=== PATIENT | male | born 1940 | race Caucasian/White ===

== ENCOUNTER 2018-03-10 20:23 | Inpatient (IN) | payer OTHER ==
[2018-03-10 21:09] LABS: Absolute Lymphocytes (CBC) 0.5 K/uL (0.7-4.9); Absolute Monocytes 0.8 K/uL (0.1-1.3); Absolute Neutrophil 11.7 K/uL (1.8-8.0); Basophils % 0.1 % (0-1.3); Eosinophils % 0.1 % (0-4.4); Hematocrit 36.5 % (39.6-49.0); Lymphocytes % 3.8 % (15.3-44.8); MCH 28.4 pg (27.0-35.0); MCV 85.6 fL (80-100); MPV 9.6 fL (7.6-11.3); Monocytes % 6.5 % (3.3-12.3); RBC Red Blood Cell Count 4.26 M/uL (4.33-5.43)
[2018-03-10 21:36] LABS: Potassium 4.4 mEq/L (3.6-5.0)
[2018-03-10 21:42] LABS: Albumin 3.7 g/dL (3.2-5.5); Bilirubin Direct 0.1 mg/dL (0-0.2); Bilirubin Total 0.6 mg/dL (0.3-1.2); Magnesium 1.8 mg/dL (1.8-2.5); Protein, Total 7.8 g/dL (6.0-8.3)
[2018-03-10 21:43] LABS: Protime INR 1.02
--- NOTE | 2018-03-10 22:17 | EDPHYS ---
Physician Documentation [facility] Name: Guru Brooks Age: 77 yrs Sex: Male : 1940 Arrival Date: 03/10/2018 Time: 20:26 Bed 30 Private MD: ED Physician Waldemar Fuentes HPI: 03/10 22:12 This 77 yrs old Male presents to ER via EMS with complaints of Hip Injury. [facility] 22:12 The patient or guardian reports decreased range of motion, deformity. that occurred at [facility] a residential or assisted living facility, sustained from a fall. The complaints affect the left hip, left gluteal fold, left inner thigh and left upper thigh. Onset: The symptoms/episode began/occurred. Modifying factors: The symptoms are alleviated by remaining still, the symptoms are aggravated by any movement, weight bearing. Associated signs and symptoms: Loss of consciousness: the patient experienced no loss of consciousness. Severity of symptoms: At their worst the symptoms were moderate, in the emergency department the symptoms are unchanged. The patient has not experienced similar symptoms in the past. Historical: - Allergies: 20:44 Milk Containing Products; aj - Home Meds: 20:44 aspirin 81 mg Oral TbEC 1 tab once daily [Active]; atorvastatin 10 mg oral tab 1 tab aj once daily [Active]; Breo Ellipta 100-25 mcg/dose inhalation dsdv 1 puff once daily [Active]; docusate sodium 100 mg Oral cap 1 cap once daily [Active]; ferrous sulfate 325 mg (65 mg iron) Oral TbEC [Active]; Levemir 100 unit/mL subcutaneous soln 10 unit nightly [Active]; levothyroxine 88 mcg tab 1 tab once daily [Active]; multivitamin with minerals oral tab [Active]; Remeron 15 mg Oral tab 1 tab once daily [Active]; Vitamin D3 5,000 unit oral tab [Active]; Zoloft 25 mg Oral tab 1 tab once daily [Active]; magnesium oxide 400 mg Oral tab [Active]; Namenda 10 mg oral tab 1 tab 2 times per day [Active]; ProAir HFA 90 mcg/actuation inhalation HFAA 2 puffs every 6 hours [Active]; - PMHx: 20:44 Alcoholism; Anemia; Dementia; Hyperlipidemia; Depression; Diabetes - IDDM; COPD; aj Hypertension; Back pain; - PSHx: 20:44 Unable to obtain; aj - Immunization history: Last tetanus immunization: - up to date. - Social history:: Smoking status: Patient/guardian denies using tobacco. ROS: 22:12 Constitutional: Negative for fever, chills, and weight loss, Eyes: Negative for injury, isaak pain, redness, and discharge, ENT: Negative for injury, pain, and discharge, Neck: Negative for injury, pain, and swelling, Cardiovascular: Negative for chest pain, palpitations, and edema, Respiratory: Negative for shortness of breath, cough, wheezing, and pleuritic chest pain, Abdomen/GI: Negative for abdominal pain, nausea, vomiting, diarrhea, and constipation, Back: Negative for injury and pain, : Negative for injury, bleeding, discharge, and swelling, Skin: Negative for injury, rash, and discoloration, Neuro: Negative for headache, weakness, numbness, tingling, and seizure, Psych: Negative for depression, anxiety, suicide ideation, homicidal ideation, and hallucinations, Allergy/Immunology: Negative for hives, rash, and allergies, Endocrine: Negative for neck swelling, polydipsia, polyuria, polyphagia, and marked weight changes, Hematologic/Lymphatic: Negative for swollen nodes, abnormal bleeding, and unusual bruising. 22:12 MS/extremity: Positive for decreased range of motion, pain, tenderness, of the left hip, left gluteal fold, left inner thigh and left upper thigh. Exam: 22:12 Constitutional: This is a well developed, well nourished patient who is awake, alert, isaak and in no acute distress. Head/Face: Normocephalic, atraumatic. Eyes: Pupils equal round and reactive to light, extra-ocular motions intact. Lids and lashes normal. Conjunctiva and sclera are non-icteric and not injected. Cornea within normal limits. Periorbital areas with no swelling, redness, or edema. ENT: Nares patent. No nasal discharge, no septal abnormalities noted. Tympanic membranes are normal and external auditory canals are clear. Oropharynx with no redness, swelling, or masses, exudates, or evidence of obstruction, uvula midline. Mucous membranes moist. Neck: Trachea midline, no thyromegaly or masses palpated, and no cervical lymphadenopathy. Supple, full range of motion without nuchal rigidity, or vertebral point tenderness. No Meningismus. Chest/axilla: Normal chest wall appearance and motion. Nontender with no deformity. No lesions are appreciated. Cardiovascular: Regular rate and rhythm with a normal S1 and S2. No gallops, murmurs, or rubs. Normal PMI, no JVD. No pulse deficits. Respiratory: Lungs have equal breath sounds bilaterally, clear to auscultation and percussion. No rales, rhonchi or wheezes noted. No increased work of breathing, no retractions or nasal flaring. Abdomen/GI: Soft, non-tender, with normal bowel sounds. No distension or tympany. No guarding or rebound. No evidence of tenderness throughout. Back: No spinal tenderness. No costovertebral tenderness. Full range of motion. Male : Normal genitalia with no discharge or lesions. Skin: Warm, dry with normal turgor. Normal color with no rashes, no lesions, and no evidence of cellulitis. Neuro: Awake and alert, GCS 15, oriented to person, place, time, and situation. Cranial nerves II-XII grossly intact. Motor strength 5/5 in all extremities. Sensory grossly intact. Cerebellar exam normal. Normal gait. Psych: Awake, alert, with orientation to person, place and time. Behavior, mood, and affect are within normal limits. 22:12 Musculoskeletal/extremity: Extremities: ROM: limited active range of motion, limited passive range of motion, Circulation is intact in all extremities. Sensation intact. Compartment Syndrome exam of affected extremity: is normal. Weight bearing: is unable to bear weight, DVT Exam: No signs of deep vein thrombosis. no swelling, negative Homans' sign noted on exam, no appreciated bluish discoloration, no erythema, no increased warmth, pain, tenderness. Vital Signs: 20:44 BP 154 / 75; Pulse 118; Resp 21; Temp 98.7; Pulse Ox 91% on R/A; Weight 65.32 kg; aj Height 5 ft. 5 in. (165.10 cm); Pain 8/10; 22:46 BP 142 / 82; Pulse 110; Resp 16; Pulse Ox 100% ; kr2 23:28 BP 110 / 60; Pulse 106; Resp 16; Pulse Ox 100% on R/A; kr2 23:40 BP 112 / 68; Pulse 108; Resp 16; Pulse Ox 99% on R/A; kr2 20:44 Body Mass Index 23.96 (65.32 kg, 165.10 cm) Tabitha Coma Score: 20:44 Eye Response: spontaneous(4). Verbal Response: oriented(5). Motor Response: obeys aj commands(6). Total: 15. Trauma Score (Adult): 20:44 Eye Response: spontaneous(1); Verbal Response: oriented(1); Motor Response: obeys aj commands(2); Systolic BP: > 89 mm Hg(4); Respiratory Rate: 10 to 29 per min(4); Tabitha Score: 15; Trauma Score: 12 MDM: 21:11 Patient medically screened. [facility] 22:16 Data reviewed: vital signs, nurses notes, lab test result(s), EKG, radiologic studies, [facility] plain films. 03/10 20:48 Order name: Basic Metabolic Panel; Complete Time: 22:11 03/10 20:48 Order name: BNP 03/10 20:48 Order name: CBC with Diff 03/10 20:48 Order name: Ckmb; Complete Time: 22:11 03/10 20:48 Order name: CPK; Complete Time: 22:11 03/10 20:48 Order name: LFT's; Complete Time: 22:11 03/10 20:48 Order name: Magnesium; Complete Time: 22:11 03/10 20:48 Order name: PT-INR; Complete Time: 22:11 03/10 20:48 Order name: Ptt, Activated; Complete Time: 22:11 03/10 20:48 Order name: Troponin (emerg Dept Use Only); Complete Time: 22:11 03/10 20:48 Order name: Type And Screen; Complete Time: 22:11 03/10 21:22 Order name: CBC Smear Scan [facility] 03/10 22:33 Order name: ABO/RH no charge [facility] 03/10 22:39 Order name: Urine Dipstick--Ancillary (enter results) [facility] 03/10 20:48 Order name: XRAY Chest (1 view) 03/10 20:48 Order name: EKG; Complete Time: 20:49 03/10 20:48 Order name: Cardiac monitoring; Complete Time: 20:55 03/10 20:48 Order name: EKG - Nurse/Tech; Complete Time: 20:55 03/10 20:48 Order name: IV Saline Lock; Complete Time: 20:55 03/10 20:48 Order name: Labs collected and sent; Complete Time: 20:55 03/10 20:48 Order name: O2 Per Protocol; Complete Time: 20:55 03/10 20:48 Order name: O2 Sat Monitoring; Complete Time: 20:56 03/10 20:48 Order name: XRAY Hip LEFT 2 view 03/10 20:48 Order name: Femur Left XRAY 03/10 20:48 Order name: Pelvis XRAY 03/10 22:23 Order name: CONS Physician Consult [facility] 03/10 23:00 Order name: Urine Dipstick-Ancillary [facility] 03/10 20:48 Order name: Urine Dipstick-Ancillary (obtain specimen); Complete Time: 22:38 03/10 21:11 Order name: Escobar; Complete Time: 22:37 isaak Administered Medications: 22:45 Drug: Thiamine 100 mg Route: IV; Rate: bolus; Site: right forearm; kr2 23:30 Follow up: Response: No adverse reaction; IV Status: Completed infusion kr2 23:01 Drug: morphine 4 mg Route: IVP; Site: right forearm; kr2 23:15 Follow up: Response: No adverse reaction; Pain is decreased kr2 23:01 Drug: Zofran 2 mg Route: IVP; Site: right forearm; kr2 23:15 Follow up: Response: No adverse reaction; Nausea is decreased kr2 Disposition: 03/10/18 22:16 Hospitalization ordered by Joseph Garay for Inpatient Admission. Preliminary diagnosis are Fall due to bumping against object, Displaced fracture of base of neck of left femur, Type 1 diabetes mellitus, Dementia in other diseases classified elsewhere. - Bed requested for Telemetry/MedSurg (Inpatient). - Status is Inpatient Admission. kr2 - Condition is Stable. - Problem is new. - Symptoms have improved. UTI on Admission? No Signatures: Dispatcher [employer] EDMT Briseyda Sanon RN RN mw Myers, Amanda, RN RN aj Anderson, Corey, MD MD cha Reaves, Karey, RN RN kr2
--- NOTE | 2018-03-10 22:17 | ER ---
Nurse's Notes [facility] Name: Guru Brooks Age: 77 yrs Sex: Male : 1940 Arrival Date: 03/10/2018 Time: 20:26 Bed 30 Private MD: Diagnosis: Fall due to bumping against object;Displaced fracture of base of neck of left femur;Type 1 diabetes mellitus;Dementia in other diseases classified elsewhere Presentation: 03/10 20:33 Presenting complaint: EMS states: [facility] reports patient fell this AM, at unknown aj time. X-ray showed left femoral neck FX. Care prior to arrival: None. Mechanism of Injury: Fall Trauma event details: Injury occurred in the [facility], Injury occurred: at home. Injury occurred: March 10, 2018. 20:33 Method Of Arrival: EMS: [facility] aj 20:33 Acuity: SHERINE 2 aj 20:46 Transition of care: patient was not received from another setting of care. Onset of aj symptoms was March 10, 2018. Trauma Activation: Not Applicable Physician: ED Physician; Name: ; Notified At: ; Arrived At: Physician: General Surgeon; Name: ; Notified At: ; Arrived At: Physician: Radiology; Name: ; Notified At: ; Arrived At: Physician: Respiratory; Name: ; Notified At: ; Arrived At: Physician: Lab; Name: ; Notified At: ; Arrived At: Historical: - Allergies: 20:44 Milk Containing Products; aj - Home Meds: 20:44 aspirin 81 mg Oral TbEC 1 tab once daily [Active]; atorvastatin 10 mg oral tab 1 tab aj once daily [Active]; Breo Ellipta 100-25 mcg/dose inhalation dsdv 1 puff once daily [Active]; docusate sodium 100 mg Oral cap 1 cap once daily [Active]; ferrous sulfate 325 mg (65 mg iron) Oral TbEC [Active]; Levemir 100 unit/mL subcutaneous soln 10 unit nightly [Active]; levothyroxine 88 mcg tab 1 tab once daily [Active]; multivitamin with minerals oral tab [Active]; Remeron 15 mg Oral tab 1 tab once daily [Active]; Vitamin D3 5,000 unit oral tab [Active]; Zoloft 25 mg Oral tab 1 tab once daily [Active]; magnesium oxide 400 mg Oral tab [Active]; Namenda 10 mg oral tab 1 tab 2 times per day [Active]; ProAir HFA 90 mcg/actuation inhalation HFAA 2 puffs every 6 hours [Active]; - PMHx: 20:44 Alcoholism; Anemia; Dementia; Hyperlipidemia; Depression; Diabetes - IDDM; COPD; aj Hypertension; Back pain; - PSHx: 20:44 Unable to obtain; aj - Immunization history: Last tetanus immunization: - up to date. - Social history:: Smoking status: Patient/guardian denies using tobacco. Screenin:44 Abuse screen: Denies threats or abuse. Denies injuries from another. Tuberculosis aj screening: No symptoms or risk factors identified. 21:00 Fall Risk Fall in past 12 months (25 points). Secondary diagnosis (15 points) dementia, kr2 IV access (20 points). Ambulatory Aid- None/Bed Rest/Nurse Assist (0 pts). 21:00 Nutritional screening: Difficulty chewing/swallowing? Yes. kr2 Primary Survey: 20:44 A: Airway: patent. Breathing/Chest: Respiratory pattern: regular, Respiratory effort: aj spontaneous, unlabored, Breath sounds: clear, bilaterally. Chest inspection: symmetrical rise and fall of the chest. Circulation: Cardiac rhythm: sinus tachycardia Skin color: pink. Disability Alert. 21:00 Reassessment Airway Airway Patent Breathing/Chest Respiratory pattern Regular kr2 Respiratory effort Spontaneous Unlabored Circulation Heart rhythm Sinus tach Color [place] Temperature Warm Dry Disability Alert. Assessment: 20:33 General: Appears in no apparent distress. comfortable, Behavior is calm, cooperative. aj Pain: Complains of pain in left hip. Neuro: Level of Consciousness is awake, alert, obeys commands, Oriented to person, place. Cardiovascular: Denies chest pain. Respiratory: Airway is patent Respiratory effort is even, unlabored, Respiratory pattern is regular, symmetrical. Derm: Skin is intact, is fragile, is thin, Skin is pink, warm \T\ dry. normal, Bruising that is dark purple, on dorsal aspect of right forearm and right wrist. Musculoskeletal: Reports pain in left hip. 21:30 Reassessment: Patient appears in no apparent distress at this time. Patient and/or kr2 family updated on plan of care and expected duration. Pain level reassessed. Patient is alert, oriented x 3, equal unlabored respirations, skin warm/dry/pink. 22:30 Reassessment: Patient appears in no apparent distress at this time. Patient is alert, kr2 oriented x 3, equal unlabored respirations, skin warm/dry/pink. Personal care provided, clean adult brief applied, tolerated well. 23:39 Reassessment: Patient appears in no apparent distress at this time. Patient and/or kr2 family updated on plan of care and expected duration. Pain level reassessed. Patient is alert, oriented x 3, equal unlabored respirations, skin warm/dry/pink. Pain decreased with administration of morphine. Vital Signs: 20:44 BP 154 / 75; Pulse 118; Resp 21; Temp 98.7; Pulse Ox 91% on R/A; Weight 65.32 kg; aj Height 5 ft. 5 in. (165.10 cm); Pain 8/10; 22:46 BP 142 / 82; Pulse 110; Resp 16; Pulse Ox 100% ; kr2 23:28 BP 110 / 60; Pulse 106; Resp 16; Pulse Ox 100% on R/A; kr2 23:40 BP 112 / 68; Pulse 108; Resp 16; Pulse Ox 99% on R/A; kr2 20:44 Body Mass Index 23.96 (65.32 kg, 165.10 cm) aj [place] Coma Score: 20:44 Eye Response: spontaneous(4). Verbal Response: oriented(5). Motor Response: obeys aj commands(6). Total: 15. Trauma Score (Adult): 20:44 Eye Response: spontaneous(1); Verbal Response: oriented(1); Motor Response: obeys aj commands(2); Systolic BP: > 89 mm Hg(4); Respiratory Rate: 10 to 29 per min(4); Tabitha Score: 15; Trauma Score: 12 ED Course: 20:26 Patient arrived in ED. em1 20:31 Keren Higuera, RN is Primary Nurse. kr2 20:34 Triage completed. aj 20:44 Patient has correct armband on for positive identification. Placed in gown. Side rails aj up X 1. 20:44 Patient maintains SpO2 saturation greater than 95% on room air. aj 20:46 Arm band placed on right wrist. Patient placed in an exam room, on a stretcher, on aj groundwater monitoring technician, on pulse oximetry. 20:46 Inserted saline lock: 22 gauge in right forearm, using aseptic technique. Blood aj collected. 21:11 Waldemar Fuentes MD is Attending Physician. isaak 21:50 Patient moved to radiology via stretcher. kc2 21:50 Thermoregulation: warm blanket given to patient. kr2 22:15 Joseph Garay MD is Hospitalizing Provider. isaak 22:17 X-ray completed. Portable x-ray completed in exam room. Patient tolerated procedure kc2 well. 22:18 XRAY Chest (1 view) In Process Unspecified. EDMS 22:18 XRAY Hip LEFT 2 view In Process Unspecified. EDMS 22:18 Femur Left XRAY In Process Unspecified. EDMS 22:18 Pelvis XRAY In Process Unspecified. EDMS 22:30 Escobar cath inserted, using sterile technique, 16 Fr., by al, balloon inflated, to kr2 gravity drainage, urine specimen collected. returned phong urine. Patient tolerated well. 23:38 No provider procedures requiring assistance completed. Patient admitted, IV remains in kr2 place. Administered Medications: 22:45 Drug: Thiamine 100 mg Route: IV; Rate: bolus; Site: right forearm; kr2 23:30 Follow up: Response: No adverse reaction; IV Status: Completed infusion kr2 23:01 Drug: morphine 4 mg Route: IVP; Site: right forearm; kr2 23:15 Follow up: Response: No adverse reaction; Pain is decreased kr2 23:01 Drug: Zofran 2 mg Route: IVP; Site: right forearm; kr2 23:15 Follow up: Response: No adverse reaction; Nausea is decreased kr2 Intake: 23:32 IV: 100ml (IV Fluid); Total: 100ml. kr2 Outcome: 22:16 Decision to Hospitalize by Provider. isaak 23:38 Admitted to Med/surg accompanied by casey, via stretcher, room 408, with chart, Report kr2 called to Jennifer 23:38 Condition: stable 23:38 Instructed on the need for admit, Demonstrated understanding of instructions. 23:43 Patient left the ED. kr2 Signatures: Dispatcher [employer] Radha Mittal, Waldemar Arshad RN, MD MD cha Martinez, Mikhail em1 Lyndsay Blevins kc2 Keren Higuera RN RN kr2 Corrections: (The following items were deleted from the chart) 23:02 22:45 Thiamine 100 mg IV at bolus in right antecubital kr2 kr2 23:34 23:34 Patient's length of stay was not longer than 2 hours. kr2 kr2 23:41 23:40 Reassessment: Patient appears in no apparent distress at this time. Patient kr2 and/or family updated on plan of care and expected duration. Pain level reassessed. Patient is alert, oriented x 3, equal unlabored respirations, skin warm/dry/pink. kr2 23:42 22:30 Reassessment: Patient appears in no apparent distress at this time. Patient is kr2 alert, oriented x 3, equal unlabored respirations, skin warm/dry/pink. kr2
[2018-03-10 22:27] LABS: Platelet Estimate ADEQ; Urine White Blood Cell Casts OK
[2018-03-10 22:28] LABS: Anisocytosis 1+; Blood Morphology Comment NOTED (NOT SEEN)
[2018-03-10] MEDS ORDERED: THIAMINE 200 MG/2 ML INJ ONE (22:38)
[2018-03-10] MEDS ORDERED: NA CHLORIDE 0.9% 1,000 ML ONE (22:38)
[2018-03-10] MEDS ORDERED: ONDANSETRON 4 MG/2 ML VIAL ONE (22:51)
[2018-03-10] MEDS ORDERED: MORPHINE 10 MG/ML VIAL ONE (22:51)
[2018-03-10 23:00] LABS: Urine Blood NEGATIVE (NEG); Urine Glucose NEGATIVE (NEG); Urine Protein NEGATIVE (NEG); Urine Specific Gravity 1.015 (1.005-1.030); Urine pH 6.5 (5.0-7.0)
--- NOTE | 2018-03-10 23:24 | P.HP ---
Certification for Inpatient Patient admitted to: Inpatient With expected LOS: >2 Midnights Practitioner: I am a practitioner with admitting privileges, knowledge of patient current condition, hospital course, and medical plan of care. Services: Services provided to patient in accordance with Admission requirements found in Title 42 Section 412.3 of the Code of Federal Regulations Patient History Date of Service: 03/10/18 Reason for admission: hip fracture History of Present Illness: Mr Brooks is a 77 years old male with history of IDDM, HTN, dementia, who fell today in the residential were he is a resident. After the fall, the patient was unable to bear weight on his left leg. The patient is not a good historian, most of the data us getting from ED records. The patient had a left hip XR in the residential, it was remarkable for left femoral neck FX. No history of fever or chills. Allergies Milk Containing Products Adverse Reaction (Severe, Verified 10/26/14 16:45) diarrhea Home Medications: Albuterol Sulfate [Proair Hfa] 1 inh PO Q4HP PRN 10/23/14 Citalopram Hydrobromide [Citalopram HBr] 40 mg PO DAILY 10/23/14 Saxagliptin HCl/Metformin HCl [Kombiglyze Xr 5-1,000 mg Tab] 1 tab PO DAILY Simvastatin 20 mg PO BEDTIME 10/23/14 Aspirin [Aspirin EC 81 MG] 81 mg PO DAILY #30 tablet. 11/05/14 Citalopram [Celexa*] 40 mg PO DAILY #30 tablet 11/05/14 Docusate [Colace Cap*] 100 mg PO BID #60 cap 11/05/14 Magnesium Oxide [Mag 0X*] 400 mg PO BID #60 tab 11/05/14 Multivit,Ther Iron,Ca,FA & Min [Centrum Tablet*] 1 tab PO DAILY #30 tab - Past Medical/Surgical History Diabetic: Yes -: COPD -: DIABETES -: ANEMIC -: HTN -: DEPRESSION -: ALCOHOL/NICOTENE ABUSE - Family History Brother -: Other (see notes) Notes: Father with hypertension and heart disease Mother -: Diabetes Father -: Heart disease, Hypertension - Social History Smoking Status: Former smoker Alcohol use: Yes CD- Drugs: No Caffeine use: Yes Place of Residence: Detention Review of Systems 10-point ROS is otherwise unremarkable Physical Examination - Physical Exam General: Alert, In no apparent distress HEENT: Atraumatic, PERRLA, Mucous membr. moist/pink, EOMI, Sclerae nonicteric Neck: Supple, 2+ carotid pulse no bruit, No LAD, Without JVD or thyroid abnormality Respiratory: Clear to auscultation bilaterally, Normal air movement Cardiovascular: Regular rate/rhythm, Normal S1 S2 Gastrointestinal: Normal bowel sounds, No tenderness Musculoskeletal: Other (left hip pain) Integumentary: No rashes Neurological: Normal speech, Normal strength at 5/5 x4 extr, Normal tone, Normal affect Lymphatics: No axilla or inguinal lymphadenopathy - Studies Laboratory Data (last 24 hrs) 03/10/18 20:50: PT 12.0, INR 1.02, APTT 30.2 03/10/18 20:50: WBC 13.0 H, Hgb 12.1 L, Hct 36.5 L, Plt Count 218 03/10/18 20:50: Sodium 138, Potassium 4.4, BUN 30 H, Creatinine 1.19, Glucose 259 H, Magnesium 1.8, Total Bilirubin 0.6, AST 35, ALT 31, Alkaline Phosphatase 137 H Assessment and Plan - Problems (Diagnosis) (1) capital femoral neck fractrue Current Visit: Yes Status: Acute (2) COPD (chronic obstructive pulmonary disease) Onset Date: 10/28/14 Current Visit: No Status: Acute Qualifiers: COPD type: chronic bronchitis Chronic bronchitis type: unspecified Qualified Code(s): J42 - Unspecified chronic bronchitis (3) Diabetes mellitus Onset Date: 10/25/14 Current Visit: No Status: Acute Qualifiers: Diabetes mellitus type: type 2 Diabetes mellitus shelter insulin use: unspecified intermodal dispatcher insulin use status (4) Fall Onset Date: 10/25/14 Current Visit: No Status: Acute Qualifiers: Encounter type: initial encounter Qualified Code(s): W19.XXXA - Unspecified fall, initial encounter (5) Hypertension Onset Date: 10/28/14 Current Visit: No Status: Acute Qualifiers: Hypertension type: essential hypertension Qualified Code(s): I10 - Essential (primary) hypertension - Plan Mr Brooks will be admitted to the hospital due to left capital femoral neck fracture. Dr Zuluaga was consulted. Continue symptomati nedication. - Advance Directives Does patient have a Living Will: No Does patient have a Durable POA for Healthcare: No - Code Status/Comfort Care Code Status Assessed: Yes Code Status: Full Code
[2018-03-10] MEDS ORDERED: IPRATROPIUM BROM 0.5MG/2.5ML NEB PRN (23:56)
[2018-03-10] MEDS ORDERED: ACETAMINOPHEN 500 MG TAB PO PRN (23:56)
[2018-03-10] MEDS ORDERED: ONDANSETRON 4 MG/2 ML VIAL IV PRN (23:56)
[2018-03-10] MEDS ORDERED: TRAMADOL HCL 50 MG TAB PO PRN (23:56)
[2018-03-10] MEDS ORDERED: ALBUTEROL 2.5 MG/3 ML NEB SOL NEB PRN (23:56)
[2018-03-11] MEDS: NA CHLORIDE 0.9% 1,000 ML IV SCH ×3 (01:24→18:51)
[2018-03-11] MEDS: FENTANYL CITR 100 MCG/2 ML IV PRN (04:17)
[2018-03-11 04:58] LABS: Absolute Lymphocytes (CBC) 1.1 K/uL (0.7-4.9); Basophils % 0.2 % (0-1.3); Eosinophils % 0.8 % (0-4.4); Hematocrit 35.8 % (39.6-49.0); Lymphocytes % 10.8 % (15.3-44.8); MCH 28.5 pg (27.0-35.0); MCV 86.4 fL (80-100); MPV 9.9 fL (7.6-11.3); Monocytes % 9.5 % (3.3-12.3); RBC Red Blood Cell Count 4.15 M/uL (4.33-5.43)
[2018-03-11 05:11] LABS: Potassium 4.8 mEq/L (3.6-5.0)
[2018-03-11 05:17] VITALS: BMI 23.9
[2018-03-11] MEDS: INSULIN -REGULAR HUMAN 50 UNIT/0.5 ML ML SQ SCH ×5 (06:00→20:52)
--- NOTE | 2018-03-11 07:39 | RAD REPORT ---
EXAM DESCRIPTION: RAD - Pelvis - 03/10/2018 10:18 pm CLINICAL HISTORY: Fall, pelvic and hip pain COMPARISON: None. TECHNIQUE: AP imaging of the pelvis was obtained. FINDINGS: Left femur findings are separately detailed. No acute finding in the proximal right femur. Bony pelvis shows no fracture or pathologic bone component. Prominent lower lumbar degenerative garcia ges are present. Large amount of stool distends the rectum. Dense arterial tree calcifications are pr esent. IMPRESSION: No fracture of the bony pelvis identified. Sacral ala are partially obscured. Proximal left femur findings are separately detailed.
--- NOTE | 2018-03-11 07:40 | RAD REPORT ---
EXAM DESCRIPTION: RAD - Hip Left 2 View - 03/10/2018 10:18 pm CLINICAL HISTORY: Fall, pelvic pain and hip pain COMPARISON: None. FINDINGS: AP and cross-table lateral views obtained. Proximal femur is fractured at the femoral head - neck junction. The subcapital fracture is minimally impacted along the medial margin. No pathologi c component seen. No intertrochanteric involvement seen. Degenerative changes are present at the hip joint. Dense arterial tree calcifications are present. No significant periarticular mass or hematoma. IMPRESSION: Left femur subcapital neck fracture with minimal impaction.
--- NOTE | 2018-03-11 07:41 | RAD REPORT ---
EXAM DESCRIPTION: RAD - Femur Left - 03/10/2018 10:18 pm CLINICAL HISTORY: Fall, pelvic and hip pain COMPARISON: None. FINDINGS: Proximal femur fracture findings are separately detailed. The remainder the femur shows no fracture or acute bone finding. Dense arterial tree calcifications are noted. No suspicious soft tis jared finding. No air or foreign body in the soft tissues. IMPRESSION: Proximal femur fracture at the hip joint is separately detailed. Remainder of the femur without significant finding.
--- NOTE | 2018-03-11 08:13 | RAD REPORT ---
EXAM DESCRIPTION: RAD - Chest Single View - 03/10/2018 10:18 pm CLINICAL HISTORY: Femur fracture, preop chest COMPARISON: September 2014 TECHNIQUE: AP portable chest image was obtained 2204 hours . FINDINGS: Fibrotic lung changes are present similar to the comparison. No superimposed failure, infi ltrate or mass. Trachea is midline. No new mediastinal or hilar finding. Heart and vasculature are no rmal. No measurable pleural effusion and no pneumothorax. No gross bony abnormality seen. No acute ao rtic findings suspected. IMPRESSION: Chronic fibrotic lung change similar to comparison. No acute finding.
--- NOTE | 2018-03-11 08:27 | EKG ---
Test Date: 2018-03-10 Test Time: 20:38:45 [employer]: PEPPER MEASUREMENT RESULTS: Intervals: Rate: 119 UT: 232 QRSD: 98 QT: 304 QTc: 427 Nabb: P: 116 UT: 232 QRS: 74 T: -27 INTERPRETIVE STATEMENTS: Sinus tachycardia with 1st degree AV block Nonspecific ST abnormality Abnormal QRS-T angle, consider primary T wave abnormality Abnormal ECG Compared to ECG 10/23/2014 08:02:55 First degree AV block now present ST (T wave) deviation now present T-wave abnormality now present Sinus rhythm no longer present Electronically Signed On 03-11-18 08:25:39 CDT by Bam Owens
--- NOTE | 2018-03-11 13:51 | CON ---
Date of Consultation: 03/11/2018 Reason For Consultation: Left hip pain. History Of Present Illness: Guru is a 77-year-old male who presented to the ER with left hip pain. The patient reports history of falling onto his left side with subsequent pain to his left hip and in ability to bear weight and patient had x-rays at his long-term, which demonstrated a left femoral neck fracture. The patient brought to the emergency room and had x-rays, which were consistent with a left displaced femoral neck fracture. He denies any other musculoskeletal complaints at this time. Review of Systems: As above, otherwise negative. Past Medical History: Includes diabetes, COPD, hypertension, and depression. Past Surgical History: None. Social History: Former smoker. History of alcohol use. Denies any drug use. Lives at a [facility] in [place]. Medications: Albuterol, citalopram, simvastatin, aspirin, Colace, magnesium, multivitamin, and Kombi glyze XR. Allergies: HE DOES HAVE AN ADVERSE REACTION TO MILK, WHICH CAUSES DIARRHEA. Physical Examination: General: No apparent distress. HEENT: Normocephalic, atraumatic. Neck: Supple. Cardiovascular: Brisk cap refill to all digits. Chest: Nonlabored breathing. Abdomen: Nondistended. Psychiatric: Responsive to exam. Musculoskeletal: Bilateral upper extremities functional range of motion without pain. No gross defo rmities. No obvious dislocations. Right lower extremity functional range of motion without pain of the hip, knee and ankle. Left lower extremity tenderness to palpation over his left hip pain with ra nge of motion of the left hip. Sensation grossly intact to the dorsal and plantar surface of his lef t foot. No tenderness to palpation over the knee, tibia, ankle, or distal femur. X-rays: X-rays of his left hip demonstrate a displaced left femoral neck fracture. Assessment And Plan: Mr. Brooks is a 77-year-old male with a left displaced femoral neck fracture. I discussed with the patient at length his diagnosis as well as risks and benefits associated with oper ative and nonoperative treatment. Given the displaced nature of his fracture, recommended a left hip hemiarthroplasty. He expressed understanding. We will proceed with surgery later today. Dr. Cox will continue to manage the patient medically and Physical Therapy will be consulted postoperatively . MARTA/VANESSA Voice ID: [id number] Report ID: [id number]
[2018-03-11] MEDS ORDERED: NA CHLORIDE 0.9% 1,000 ML ONE ×2 (14:00→16:28)
[2018-03-11] MEDS ORDERED: PROPOFOL 200 MG/20 ML VIAL IV ONE (14:23)
[2018-03-11] MEDS ORDERED: ONDANSETRON 4 MG/2 ML VIAL ONE (14:24)
[2018-03-11] MEDS ORDERED: FENTANYL CITR 100 MCG/2 ML ONE ×3 (14:24→15:46)
[2018-03-11] MEDS ORDERED: LIDOCAINE 2% MPF 5 ML VIAL ONE (14:24)
[2018-03-11] MEDS ORDERED: MIDAZOLAM HCL 2 MG/2 ML INJ ONE (14:27)
[2018-03-11] MEDS ORDERED: TRANEXAMIC ACID 1,000 MG in NA CHLORIDE 0.9% 50 ML IV SCH (14:30)
[2018-03-11] MEDS ORDERED: CEFAZOLIN/SWI 1gm 1 GM/10 ML SYR ONE (14:35)
[2018-03-11] MEDS ORDERED: EPHEDRINE SULF 50 MG/ML SYR ONE (15:09)
[2018-03-11] MEDS ORDERED: Phenylephrine HCl 10 MG/ML 1 ML VIAL ONE (15:09)
[2018-03-11] MEDS ORDERED: NS 0.9% VIAL 10 ML ONE (15:36)
[2018-03-11] MEDS ORDERED: MORPHINE 10 MG/ML VIAL ONE (15:52)
--- NOTE | 2018-03-11 15:54 | P.PN ---
Subjective Date of Service: 03/11/18 Chief Complaint: hip fracture Pt seen and examined at bedside. Doing well overall. C/o Pain. Scheduled for OR procedure today. Review of Systems General: As per HPI Physical Examination - Vital Signs Temperature: 97.9 F Blood Pressure: 130/60 Pulse: 82 Respirations: 18 Pulse Ox (%): 91 - Physical Exam General: Alert, In no apparent distress HEENT: Atraumatic Neck: Supple Respiratory: Clear to auscultation bilaterally, Normal air movement Cardiovascular: Regular rate/rhythm, Normal S1 S2 Gastrointestinal: Normal bowel sounds, No tenderness Musculoskeletal: Tenderness, Other (Crawford Traction on the left leg. ) Integumentary: No rashes Neurological: Normal speech, Normal tone, Normal affect Lymphatics: No axilla or inguinal lymphadenopathy - Studies Laboratory Data (last 24 hrs) 03/10/18 20:50: PT 12.0, INR 1.02, APTT 30.2 03/10/18 20:50: WBC 13.0 H, Hgb 12.1 L, Hct 36.5 L, Plt Count 218 03/10/18 20:50: B-Natriuretic Peptide 994 H 03/10/18 20:50: Sodium 138, Potassium 4.4, BUN 30 H, Creatinine 1.19, Glucose 259 H, Magnesium 1.8, Total Bilirubin 0.6, AST 35, ALT 31, Alkaline Phosphatase 137 H Medications List Reviewed: Yes Assessment & Plan - Problems (Diagnosis) (1) Fall Onset Date: 03/11/18 Current Visit: Yes Status: Acute Plan: S/P mechanical Fall at the GA -PT/OT consulted. Qualifiers: Encounter type: initial encounter Qualified Code(s): W19.XXXA - Unspecified fall, initial encounter (2) capital femoral neck fractrue Onset Date: 03/11/18 Current Visit: Yes Status: Acute Plan: Femoral neck fracture. -Ortho Consulted. Appreciated Reccs -Scheduled for ORIF today with Dr Zuluaga -IV fluids and abx (3) COPD (chronic obstructive pulmonary disease) Onset Date: 10/28/14 Current Visit: No Status: Chronic Qualifiers: COPD type: chronic bronchitis Chronic bronchitis type: unspecified Qualified Code(s): J42 - Unspecified chronic bronchitis (4) Diabetes mellitus Onset Date: 10/25/14 Current Visit: No Status: Chronic Qualifiers: Diabetes mellitus type: type 2 Diabetes mellitus group home insulin use: unspecified group home insulin use status (5) Hypertension Onset Date: 10/28/14 Current Visit: No Status: Chronic Qualifiers: Hypertension type: essential hypertension Qualified Code(s): I10 - Essential (primary) hypertension Discharge Plan: Home Plan to discharge in: 24 Hours - Code Status/Comfort Care Code Status Assessed: Yes Critical Care: No
--- NOTE | 2018-03-11 17:08 | P.BOP ---
Preoperative diagnosis: left femoral neck fracture Postoperative diagnosis: same Primary procedure: left hip hemiarthroplasty Secondary procedure: none Hand Cloth Folder: NONE,NONE Estimated blood loss: 150 cc Specimen: left femoral head Findings: see dictation Anesthesia: General Complications: None Drain(s): Urinary catheter Implants: 13 mm Biomet standard stem, 51 mm Bipolar shell, 28 mm minus 6 head Fluids & blood products: per anesthesia record Transferred to: Recovery Room Condition: Good
[2018-03-11] MEDS ORDERED: HYDROCODONE/APAP 5/325 MG TAB PO PRN (17:21)
--- NOTE | 2018-03-11 18:03 | RAD REPORT ---
EXAM DESCRIPTION: RAD - Pelvis - 03/11/2018 5:55 pm CLINICAL HISTORY: Postop left hip surgery. COMPARISON: 03/10/2018 FINDINGS: AP pelvis and left hip, multiple projections are submitted. Left total hip arthroplasty has been performed. Hardware is in expected alignment and positioning. Sk in katharina are noted laterally. Vascular calcifications are present.
[2018-03-11 18:06] LABS: Hematocrit 30.9 % (39.6-49.0)
[2018-03-11] MEDS ORDERED: D50W 25 GM/50 ML SYRINGE IV PRN (18:17)
[2018-03-11] MEDS ORDERED: GLUCAGON 1 MG/VIAL IM PRN (18:17)
[2018-03-11] MEDS: CEFAZOLIN/SWI 1gm 1 GM/10 ML SYR IV SCH (18:50)
[2018-03-11] MEDS: MAGNESIUM OXIDE 400 MG TAB PO SCH (20:52)
[2018-03-11] MEDS: MEMANTINE HCL 10 MG TABLET PO SCH (20:52)
[2018-03-11] MEDS ORDERED: ATORVASTATIN 10 MG TAB PO SCH (21:00)
[2018-03-11] MEDS ORDERED: MIRTAZAPINE 15 MG TAB PO SCH (21:00)
[2018-03-11] MEDS ORDERED: SERTRALINE HCL 50 MG TAB PO SCH (21:00)
[2018-03-12] MEDS: CEFAZOLIN/SWI 1gm 1 GM/10 ML SYR IV SCH ×2 (00:10→05:32)
[2018-03-12] MEDS: NA CHLORIDE 0.9% 1,000 ML IV SCH ×2 (00:10→16:24)
--- NOTE | 2018-03-12 05:22 | OP ---
Date of Procedure: 03/11/2018 Surgeon: Joshua Zuluaga MD Postoperative Diagnosis: Left femoral neck fracture. Postoperative Diagnosis: Left femoral neck fracture. Procedure Performed: Left hip hemiarthroplasty. Anesthesia: General LMA. Fluids: Per Anesthesia record. Ebl: 150 cc. Implants: 1.A 13 x 30 mm Biomet standard press-fit stem. 2.A 51 mm bipolar shell. 3.A 28 mm -6 head. Complications: None. Indication For Procedure: Guru is a 77-year-old male, presented to the ER last night after sustainin g a fall onto his left side with subsequent left hip pain and inability to bear weight. X-rays in th e emergency room demonstrated a displaced left femoral neck fracture. I discussed with the patient a nd his family risks and benefits associated with operative and nonoperative treatment. They expresse d understanding and elected to proceed with operative treatment. Description Of Procedure: After informed consent was obtained, the patient was identified in the pre operative holding area. The left lower extremity was marked. The patient was then taken back to the operating room, transferred to the operating table in supine fashion, and placed under general LMA a nesthesia. He was then placed in the right lateral decubitus position, an axillary roll was placed, and his extremities were well padded. The left lower extremity was prepped and draped in usual steri le fashion. A time-out was initiated. The correct patient and procedure were confirmed and identifi ed. The patient did receive his preoperative prophylactic antibiotics. An approximately 15 cm curvi linear incision was made and centered over the greater trochanter with posterior approach to the left hip. Dissection was taken down to the tensor fascia angela using Bovie electrocautery. The tensor fa scia angela was then released both proximally and distally in line with the incision. Charnley retract or was then placed. Blunt dissection was then taken down to the shorter external rotators, which wer e released of proximal femur and tagged with #5 Ethibond. A T-shaped capsulotomy was then performed. The hematoma was then evacuated. A corkscrew was then used to remove the femoral head. It was chandrakant sured with a size 51-mm shell. A 51 mm trial head then placed and there was good fit within the acet abulum. The capsule was tagged using a #5 Ethibond. Next, attention was taken to preparation of the proximal femur. A AdultSpaceie cutter was first placed after the soft tissue was removed over the lateral aspect of the femoral neck. A canal finder was then placed followed by a lateralizer on power. The canal was then reamed starting with an 8-mm reamer to a size 13 mm with good fit, followed by broach ing of the canal from a size 8-mm broach to size 13-mm broach. There was good fit of the broach with in the canal. Once in the proper position, a calcar reamer was then placed over the neck of the broa ch and the calcar was planed. Next, a size 51-mm shell and a 28 x -6 mm head was then placed and the hip was reduced through a good overall fit with the hip. The trial components were removed. The hi p was then irrigated thoroughly with normal saline. The final stem was then placed, 13-mm stem, pres s-fit stem and again, the trial was placed and there was good fit with a -6 mm head and a 51 mm bipol ar shell. Final components with the head and shell components were then placed. The hip was reduced . It was then brought in full range of motion without any instability noted and good overall leg precious gth. The wound was then irrigated thoroughly with normal saline. The capsule was then approximated using a #5 Ethibond, followed by repair of the external rotators with greater trochanter using a dril l and suture passer. The external rotators were tied over a bone bridge. The tensor fascia angela was then approximated using 0 Vicryl. The deep fascia was approximated using 0 Vicryl. Subcutaneous ti ssue was approximated using a 2-0 Vicryl. Skin was approximated using a staple. Sterile dressing wa s applied. Abduction pillow was placed. The patient was awakened and transferred to PACU in stable condition. Postoperative Plan: He will be weightbearing as tolerated. Physical Therapy will be consulted to osiel rawls with mobilization. Dr. Cox will continue to manage the patient medically. MARTA/VANESSA Voice ID: [id number] Report ID: [id number]
[2018-03-12] MEDS ORDERED: LEVOTHYROXINE SOD 0.088 MG TAB PO SCH (06:00)
[2018-03-12 06:20] LABS: Absolute Lymphocytes (CBC) 0.8 K/uL (0.7-4.9); Absolute Neutrophil 7.9 K/uL (1.8-8.0); Basophils % 0.3 % (0-1.3); Eosinophils % 4.5 % (0-4.4); Hematocrit 30.9 % (39.6-49.0); MCH 28.9 pg (27.0-35.0); MCV 89.1 fL (80-100); MPV 10.1 fL (7.6-11.3); RBC Red Blood Cell Count 3.47 M/uL (4.33-5.43)
[2018-03-12 06:44] LABS: Potassium 4.8 mEq/L (3.6-5.0)
[2018-03-12] MEDS: INSULIN -REGULAR HUMAN 50 UNIT/0.5 ML ML SQ SCH ×3 (07:30→16:30)
--- NOTE | 2018-03-12 08:44 | RAD REPORT ---
EXAM DESCRIPTION: RAD - Hip Left 2 View - 03/11/2018 5:56 pm CLINICAL HISTORY: Postop left hip surgery. COMPARISON: 03/10/2018 FINDINGS: AP pelvis and left hip, multiple projections are submitted. Left total hip arthroplasty has been performed. Hardware is in expected alignment and positioning. Sk in katharina are noted laterally. Vascular calcifications are present.
[2018-03-12] MEDS ORDERED: HOME MED 1 EA UNK (Docusate Sodium [Docusate Sodium] 100 MG) PO SCH (09:00)
[2018-03-12] MEDS ORDERED: FOLIC AC PO SCH (09:00)
[2018-03-12] MEDS ORDERED: DOCUSATE NA 100 MG CAP PO SCH (09:00)
[2018-03-12] MEDS ORDERED: VITAMIN D 5,000 UNIT CAP PO SCH (09:00)
[2018-03-12] MEDS ORDERED: ENOXAPARIN 40 MG/0.4 ML SQ SCH (09:00)
[2018-03-12] MEDS ORDERED: FERROUS SULFATE 325 MG TAB PO SCH (09:00)
[2018-03-12] MEDS ORDERED: HOME MED 1 EA UNK (Cholecalciferol (Vitamin D3) [Vitamin D3] 1 TAB) PO SCH (09:00)
[2018-03-12] MEDS ORDERED: [UNRECOGNIZED DRUG - OTHER] PO SCH (09:00)
[2018-03-12] MEDS ORDERED: IRON FUM PO SCH (09:00)
[2018-03-12] MEDS ORDERED: MULTIVIT W/ MINERAL TAB PO SCH (09:00)
[2018-03-12] MEDS: MAGNESIUM OXIDE 400 MG TAB PO SCH (09:00)
[2018-03-12] MEDS: MEMANTINE HCL 10 MG TABLET PO SCH (09:00)
[2018-03-12] MEDS ORDERED: MULTIVIT MIN PO SCH (09:00)
--- NOTE | 2018-03-12 09:39 | RAD REPORT ---
EXAM DESCRIPTION: RAD - Chest Single View - 03/12/2018 9:34 am CLINICAL HISTORY: Chest pain. COMPARISON: 03/10/2018 FINDINGS: Portable technique limits examination quality. The lungs are mildly emphysematous but grossly clear. The heart is normal in size. No displaced fract ures.Aortic atherosclerosis is seen. IMPRESSION: No acute intrathoracic process suspected.
[2018-03-12] MEDS: FENTANYL CITR 100 MCG/2 ML IV PRN ×3 (10:10→16:24)
[2018-03-12 10:44] VITALS: O2SAT 97
--- NOTE | 2018-03-12 14:22 | P.PN ---
Subjective Date of Service: 03/12/18 Chief Complaint: hip fracture Subjective: Working w/ PT Reports pain with left hip Physical Examination - Vital Signs Temperature: 98.1 F Blood Pressure: 127/60 Pulse: 107 Respirations: 20 Pulse Ox (%): 92 - Physical Exam General: Alert, In no apparent distress Musculoskeletal: Other (LLE: dressing c/d/i; good leg length; +EHL/FHL/GSC/TA; sensation grossly intact distally) - Studies Medications List Reviewed: Yes Assessment And Plan - Plan Guru is a 77 yo male s/p left hip hemiarthroplasty POD#1 -PT to mobilize: WBAT LLE; posterior hip precautions -acute expected postoperative blood loss anemia; continue to monitor H/H -lovenox for DVT prophylaxis -d/c carlitos
--- NOTE | 2018-03-12 14:30 | RAD REPORT ---
EXAM DESCRIPTION: RAD - Barium Swallow Modified - 03/12/2018 2:11 pm CLINICAL HISTORY: Difficulty swallowing, choking COMPARISON: None. TECHNIQUE: The patient was given liquid, semi-solid and solid forms of barium. Lateral view fluorosc opic imaging was performed in conjunction with [facility]. FINDINGS: Laryngeal penetration was observed on the thin and nectar forms of barium. This showed lit tle or poor clearing. Aspiration with a delayed cough reflex noted with the nectar form of barium. Pa tient had residual contrast in the valleculae and piriform sinuses. Delayed swallow reflex was observ ed as well. IMPRESSION: Laryngeal penetration and aspiration findings as detailed. Full findings are detailed in separate speech pathology report.
[2018-03-12 17:00] VITALS: BP 135/57; TEMP 98.8
--- NOTE | 2018-03-12 17:22 | P.DS ---
Admission Date: 03/10/18 Discharge Date: 03/12/18 Disposition: ROUTINE DISCHARGE Discharge Condition: GOOD Reason for Admission: hip fracture Consultations: Orthopedic Procedures: ORIF - Problems (1) Fall Onset Date: 03/11/18 Current Visit: Yes Status: Acute Qualifiers: Encounter type: initial encounter Qualified Code(s): W19.XXXA - Unspecified fall, initial encounter (2) capital femoral neck fractrue Onset Date: 03/11/18 Current Visit: Yes Status: Acute (3) COPD (chronic obstructive pulmonary disease) Onset Date: 10/28/14 Current Visit: No Status: Chronic Qualifiers: COPD type: chronic bronchitis Chronic bronchitis type: unspecified Qualified Code(s): J42 - Unspecified chronic bronchitis (4) Diabetes mellitus Onset Date: 10/25/14 Current Visit: No Status: Chronic Qualifiers: Diabetes mellitus type: type 2 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 After the fall, the patient was unable to bear weight on his left leg. The patient is not a good historian, most of the data us getting from ED records. The patient had a left hip XR in the skilled nursing, it was remarkable for left femoral neck FX. No history of fever or chills. Hospital Course: Overall during the hospital stay patient remained stable Patient is initially admitted to the hospital after having a fall at the skilled nursing. Patient was found to have left femoral neck fracture. Orthopedic surgeon was consulted. Patient had a open reduction internal fixation done with orthopedic surgeon done here in the hospital. Patient tolerated the procedure well. No complications were noted. Patient's hemoglobin remained stable and patient worked with physical therapy and did well overall. Patient also had dysphagia when he presented to the ER here in the hospital. Speech therapy was consulted and had a modified barium swallow. Speech therapist recommended that patient have thickened nectar with honey and liquids. Patient was then discharged home under stable condition. Patient was also given a prescription for clindamycin for pneumonitis that was noted on the x-ray on the day of discharge. Patient will be discharged back to [facility] where patient is a resident of [facility]. for a while. Vital Signs/Physical Exam: Temp Pulse Resp BP Pulse Ox 98.8 F 108 H 20 135/57 L 94 03/12/18 16:00 03/12/18 16:00 03/12/18 16:00 03/12/18 16:00 03/12/18 16:00 General: Alert, In no apparent distress HEENT: Atraumatic, PERRLA, EOMI Neck: Supple, JVD not distended Respiratory: Clear to auscultation bilaterally, Normal air movement Cardiovascular: Regular rate/rhythm, Normal S1 S2 Gastrointestinal: Normal bowel sounds, No tenderness Musculoskeletal: No tenderness Integumentary: No rashes Neurological: Normal speech, Normal tone, Normal affect Lymphatics: No axilla or inguinal lymphadenopathy Laboratory Data at Discharge: WBC 10.2 K/uL (4.3-10.9) 03/12/18 05:28 Hgb 10.0 g/dL (13.6-17.9) L 03/12/18 05:28 Hct 30.9 % (39.6-49.0) L 03/12/18 05:28 Plt Count 170 K/uL (152-406) D 03/12/18 05:28 PT 12.0 SECONDS (9.5-12.5) 03/10/18 20:50 INR 1.02 03/10/18 20:50 APTT 30.2 SECONDS (24.3-36.9) 03/10/18 20:50 Sodium 142 mEq/L (135-145) 03/12/18 05:28 Potassium 4.8 mEq/L (3.6-5.0) 03/12/18 05:28 BUN 27 mg/dL (6-20) H 03/12/18 05:28 Creatinine 1.33 mg/dL (0.61-1.24) H 03/12/18 05:28 Glucose 149 mg/dL (65-120) H 03/12/18 05:28 Magnesium 2.1 mg/dL (1.8-2.5) 03/11/18 04:05 Total Bilirubin 0.6 mg/dL (0.3-1.2) 03/10/18 20:50 AST 35 IU/L (10-42) 03/10/18 20:50 ALT 31 IU/L (10-60) 03/10/18 20:50 Alkaline Phosphatase 137 IU/L (42-121) H 03/10/18 20:50 B-Natriuretic Peptide 994 pg/ml (<=100) H 03/10/18 20:50 Home Medications: Acetaminophen [Tylenol] 2 tab PO Q6H PRN 03/11/18 Albuterol Sulfate [Proair Hfa] 2 puff IH Q6H PRN 03/11/18 Aspirin [Adult Low Dose Aspirin EC] 81 mg PO DAILY 03/11/18 Atorvastatin Calcium 10 mg PO BEDTIME 03/11/18 Cholecalciferol (Vitamin D3) [Vitamin D3] 1 tab PO DAILY 03/11/18 Docusate Sodium 100 mg PO DAILY 03/11/18 Ferrous Sulfate [Ferrous Sulfate*] 325 mg PO DAILY 03/11/18 Fluticasone/Vilanterol [Breo Ellipta 100-25 Mcg INH] 1 puff IH DAILY 03/11/18 Insulin Detemir [Levemir*] 10 unit SQ BEDTIME 03/11/18 Levothyroxine [Synthroid*] 88 mcg PO [id number] 03/11/18 Magnesium Oxide [Mag 0X*] 400 mg PO BID 03/11/18 Memantine HCl [Namenda*] 10 mg PO BID 03/11/18 Mirtazapine [Remeron*] 15 mg PO BEDTIME 03/11/18 Multivit-Min/Iron Fum/Folic AC [Qmmwo-Jgsvryl-Kfzbusng Tablet] 1 tab PO DAILY Sertraline [Zoloft*] 25 mg PO BEDTIME 03/11/18 Clindamycin Palmitate HCl [Cleocin Palmitate*] 15 ml PO BID 10 Days #1 btl 03/12 New Medications: Clindamycin Palmitate HCl [Cleocin Palmitate*] 15 ml PO BID 10 Days #1 btl Patient Discharge Instructions: Please f/u with PCP in 1 week and Ortho in 1 week post discharge. New medication. Clindamycin 15ML BID for 10 days Diet: Regular Activity: Ad prerna Followup: Joshua Zuluaga MD [ACTIVE - CAN ADMIT] - 1 Week
== END 2018-03-12 20:00 | DRG 470 ==
LOC: ER 20:23 → ERHOLD 22:19 → 4TH 23:19
PROVIDERS: ADMIT Internal Medicine; ATTEND Family Medicine
PROC: 0SRB0JZ Replacement of Left Hip Joint with Synthetic Substitute, Open Approach (ICD-10-PCS; principal; 2018-03-11 15:00)
DX: S72.92XA Unspecified fracture of left femur, initial encounter for closed fracture (principal); E11.9 Type 2 diabetes mellitus without complications; I10 Essential (primary) hypertension; J44.9 Chronic obstructive pulmonary disease, unspecified; W19.XXXA Unspecified fall, initial encounter
CPT/HCPCS: 36415; 51702; 71045; 72170; 74230; 80048; 80076; 81003; 82550; 82553; 82962; 83735; 83880; 84484; 85014; 85018; 85025; 85610; 85730; 86850; 86900; 86901; 88305; 88311; 93005; 96365; 96375; 97163; 99285; J0690; J1650; J2250; J2370; J2405; J3010; J3411; J7030